=== PATIENT | male | born 1945 | race Caucasian/White ===

== ENCOUNTER → 2019-10-29 | Outpatient (CLI) | payer OTHER, MEDICARE ==
[~2019-10-29] VITALS: Ht 165.1 cm; Wt 90.7 kg
[~2019-10-29] MED LIST: ASPIR 8181 M1 PO; LIPITOR10 MG PO; LOSARTAN POTAS100 MG PO; NORVASC5 MG PO; PENICILLIN VK500 M1 PO; PRESERVISION A1 EAC2 PO; PROBENECID500 MG PO; TRIGLIDE160 M1; VITAMIN C500 M1 PO; [UNRECOGNIZED DRUG - OTHER]
== END | disposition home or self-care (01) ==
LOC: GI 09:42
DX: Z12.11 Encounter for screening for malignant neoplasm of colon (principal); K57.30 Diverticulosis of large intestine without perforation or abscess without bleeding; K64.8 Other hemorrhoids; I10 Essential (primary) hypertension; E78.00 Pure hypercholesterolemia, unspecified; M10.9 Gout, unspecified; Z98.890 Other specified postprocedural states; Z79.899 Other long term (current) drug therapy; Z79.82 Long term (current) use of aspirin
CPT/HCPCS: 62110; 62900

== ENCOUNTER → 2021-09-29 | Outpatient (CLI) | payer OTHER, MEDICARE | LOC: CAT 11:01 → MRI 16:24 | PROVIDERS: ATTEND Family Medicine | DX: R41.3 Other amnesia (principal) ==